=== PATIENT | female | born 1970 | race Two or more races ===

== ENCOUNTER → 2018-11-05 | Outpatient (CLI) | payer OTHER ==
[~2018-11-05] MED LIST: ZOLPIDEM 5 MG TABLET. PO ONE
--- NOTE | 2018-11-06 13:40 | SLEEP ---
DATE OF STUDY: 11/05/2018 ATTENDING PHYSICIAN: Dr. Bender. REFERRING PHYSICIAN: Shaquille Floyd MD The patient is a 48-year-old who weighs 144 pounds with a BMI of 26. The patient's [place] score was 13. The patient underwent diagnostic sleep study at [facility]. During the night study, the patient spent 436 minutes in bed and slept for 370 minutes with a low sleep efficiency of 73%. Sleep latency was prolonged at 115 minutes with a REM latency of 304 minutes. Overall sleep architecture showed normal stage 1 sleep, increased stage 2 sleep, normal N3 sleep and reduced REM sleep, which was only 6% of total sleep time. During the night study, the patient had 1 obstructive apnea, no mixed or central apneas and no hypopneas. The patient's AHI for the entire night was 0 per hour. The patient's review of nocturnal oximetry study revealed an average oxygen saturation of 99% with the lowest of 92%. The patient had severe PLMS at an index of 116 per hour and 20 per hour caused EEG arousals. EKG monitoring revealed normal sinus rhythm, average heart rate 84 beats per minute, no sustained arrhythmias observed. Due to low AHI, the patient did not meet the split night criteria for CPAP initiation. IMPRESSION: 1. No clinically significant sleep disordered breathing. The patient's apnea-hypopnea index for the entire night was 0 per hour. 2. No clinically significant nocturnal hypoxia. 3. Severe periodic limb movements of sleep at an index of 116 per hour and 20 per hour caused EEG arousals. May be contributing to hypersomnia. 4. Reduced sleep efficiency resulting from sleep onset and sleep maintenance insomnia. RECOMMENDATIONS: 1. The patient does not meet the criteria for CPAP initiation. 2. The patient's PLMS can be treated with dopaminergic agonist agents due to sleep disruption. The patient should also be further evaluated for symptoms of restless legs during the day. 3. The patient's insomnia should be further evaluated and treated according to the etiology. 4. Avoid [employer] depressants. 5. Cautioned regarding driving until the patient's hypersomnia has resolved with above recommendations. SHAQUILLE FLOYD MD DR: GABI/mirta JOB#: [id number] / [id number] ecc CHARLA BENDER MD MTDD
== END | disposition home or self-care (01) ==
LOC: SLPLAB 19:17
PROVIDERS: ATTEND Internal Medicine Critical Care Medicine
DX: G47.33 Obstructive sleep apnea (adult) (pediatric) (principal); G47.09 Other insomnia; F32.9 Major depressive disorder, single episode, unspecified; E03.9 Hypothyroidism, unspecified; E78.5 Hyperlipidemia, unspecified
CPT/HCPCS: 95810